=== PATIENT | male | born 1975 | race Caucasian/White ===

== ENCOUNTER 2017-01-30 16:40 | Inpatient (IN) ==
[2017-01-30] MEDS ORDERED: Ondansetron 4 MG/2 ML VIAL IVP PRN (18:54)
[2017-01-30] MEDS ORDERED: Naloxone 0.4 MG/ML INJ IVP PRN (18:54)
[2017-01-30 19:01] LABS: Amphetamine Screen,Urine Negative ng/mL (Cutoff=1000); Barbiturate Screen,Urine Negative ng/mL (Cutoff=200); Benzodiazepines Screen,Urine Positive ng/mL (Cutoff=200); Cannabinoid Screen,Urine Positive ng/mL (Cutoff = 50); Cocaine Screen,Urine Negative ng/mL (Cutoff= 300); Opiate Screen,Urine Negative ng/mL (Cutoff=300); Phencyclidine Screen,Urine Negative ng/mL (Cutoff=25)
--- NOTE | 2017-01-30 19:06 | Internal Med History&Physical ---
<AkhilJacobVivekomarelfegoDevonte H - Last Filed: 01/30/17 21:55> Date of Encounter: 01/30/17 Internal Medicine - H&P: HPI History of present illness: Mr. Bearden is a 41 year old male Internal Medicine - H&P: Meds Atenolol [Tenormin] 25 mg PO DAILY 01/30/17 [History] Gabapentin [Gralise] 900 mg PO DAILY 01/30/17 [History] Levothyroxine [Synthroid] [place] [address]/30/17 [History] Lurasidone HCl [Latuda] 60 mg PO DAILY 01/30/17 [History] Meclizine [Antivert] 25 mg PO DAILY 01/30/17 [History] Sertraline [Zoloft] 150 mg PO DAILY 01/30/17 [History] Simvastatin [Zocor] 40 mg PO HS 01/30/17 [History] Trazodone HCl 450 mg PO DAILY 01/30/17 [History] metFORMIN [Glucophage] 500 mg PO DAILY 01/30/17 [History] Allergies aspirin Allergy (Verified 07/31/16 21:00) See Comments has peptic ulcer tramadol Adverse Reaction (Verified 07/31/16 21:00) Abdominal Pain All Systems PM: A 10-system review of systems was performed and is negative for pertinent findings except as documented above in the HPI. - Constitutional Vitals: Temp Pulse Resp BP Pulse Ox 97.3 F L 108 18 155/107 95 01/30/17 19:12 01/30/17 19:12 01/30/17 19:12 01/30/17 19:12 01/30/17 19:12 Internal Med - H&P Results - Impressions ITS Impressions Brain MRI 01/30/17 20:04 IMPRESSION: No acute infarct. D/ / Edward Gilliam MD / Edward Gilliam MD Interpreting Provider: Edward Gilliam MD - Attending Attestation 1. Acute COPD exacerbation secondary to sepsis due to acute bacterial bronchitis Start Solu-Medrol, troponins, and oxygen therapy as needed Continue Levaquin, discontinue Zosyn 2. Tobacco use, smoking cessation counseling given for 5 minutes. Ordered nicotine patch 3. Persistent dizziness, possible vertigo MRI of the brain was negative for CVA 4. Diabetes type 2 Hold metformin due to lactic acidosis 5. Lactic acidosis likely secondary to poor oxygenation/perfusion from COPD 6. Hypokalemia, replete as needed Order a urine analysis Admit as inpatient, expected to stay more than 2 minutes. Full code. Time spent on this admission 40 minutes. <Khanh Bruce - Last Filed: 01/30/17 22:22> Date of Encounter: 01/30/17 Time of Encounter: 18:30 Assessment and Plan (1) Slurred speech Current visit: No Status: Acute Assess: Mr. Bearden presents with chief complaint of slurred speech, ataxia, dizziness. Patient states his symptoms began approximately 3 days ago and cannot recall the exact onset of symptoms. Reports he is having trouble keeping his balance as well as maintaining normal speech pattern. Patient also reports near syncopal episodes but no blackouts. Mr. Bearden denies visual changes, confusion, sensory deficits, fever, chills, headache, neck pain, chest pain, SOB, abdominal pain, nausea, vomiting, or diaphoresis. Plan: NIHSS ordered Neurological checks Q2HR ordered MR of head/brain w/o contrast ordered Monitor patient and vital signs Falls precautions/[id number] only (2) Ataxia Current visit: No Status: Acute Assess: Mr. Bearden presents with chief complaint of slurred speech, ataxia, dizziness. Patient states his symptoms began approximately 3 days ago and cannot recall the exact onset of symptoms. Reports he is having trouble keeping his balance as well as maintaining normal speech pattern. Patient also reports near syncopal episodes but no blackouts. Mr. Bearden denies visual changes, confusion, sensory deficits, fever, chills, headache, neck pain, chest pain, SOB, abdominal pain, nausea, vomiting, or diaphoresis. Plan: NIHSS ordered Neurological checks Q2HR ordered MR of head/brain w/o contrast ordered Monitor patient and vital signs Falls precautions/[id number] only (3) Leukocytosis Current visit: Yes Status: Acute Assess: Patient presents with a white blood count of 13.6 as well as heart rate ranging between 107 and 117 BPM. Patient is currently exhibiting symptoms of dizziness with ataxia and slurred speech which have been ongoing for approximately 3 days. Patient currently meets SIRS criteria. Plan: Blood cultures ordered Urine cultures ordered Sputum cultures ordered IV levaquin ordered IV Zosyn ordered Lactic acid and time lactic acid ordered Repeat CBC ordered Monitor patient and vital signs Qualifiers: Leukocytosis type: unspecified Qualified Code(s): D72.829 - Elevated white blood cell count, unspecified (4) SIRS (systemic inflammatory response syndrome) Current visit: Yes Status: Acute Assess: Patient presents with a white blood count of 13.6 as well as heart rate ranging between 107 and 117 BPM. Patient is currently exhibiting symptoms of dizziness with ataxia and slurred speech which have been ongoing for approximately 3 days. Patient currently meets SIRS criteria. Plan: Blood cultures ordered Urine cultures ordered Sputum cultures ordered IV levaquin ordered IV Zosyn ordered Lactic acid and time lactic acid ordered Repeat CBC ordered Monitor patient and vital signs (5) Diabetes Current visit: Yes Status: Chronic Assess: Presents with chronic history of diabetes type 2 managed by oral hyperglycemics. 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 Plan: Lipid panel ordered Continue Zocor Qualifiers: Hyperlipidemia type: unspecified Qualified Code(s): E78.5 - Hyperlipidemia , unspecified (7) Hypertension Current visit: Yes Status: Chronic Assess: Patient presents with history of chronic hypertension. Plan: Continue Atenolol Monitor patient and vital signs Qualifiers: Hypertension type: essential hypertension Qualified Code(s): I10 - Essential (primary) hypertension (8) DVT prophylaxis Current visit: Yes Status: Acute Assess: Patient was placed on DVT prophylaxis due to inpatient status protocol. Plan: Heparin 5,000 units SQ Q8 ordered SCDs for lower extremities ordered bilaterally Internal Medicine - H&P: HPI Chief complaint: Slurred speech/dizziness/ataxia Admitted From: Hospital to Hospital Transfer Plans for Post Hospital Care: Home History of present illness: Mr. Bearden is a 41 year old male who presents from [facility] with chief complaint of slurred speech, ataxia, dizziness. Patient states his symptoms began approximately 3 days ago and cannot recall the exact onset of symptoms. Reports he is having trouble keeping his balance as well as maintaining normal speech pattern. Patient also reports near syncopal episodes but no blackouts. Mr. Bearden denies visual changes, confusion, sensory deficits, fever, chills, headache, neck pain, chest pain, SOB, abdominal pain, nausea, vomiting, or diaphoresis. Patient is a history of diabetes, GERD, hyperlipidemia, hypertension, migraine, thyroid disease. Upon admission patient is tachycardic with heart rate of 107-117. Patient also has current WBC of 13.6. Patient is high risk due to meeting SIRS criteria based on WBCs of 13.6 and HR or 107-117, as well as symptoms of ataxia and slurred speech. Patient to be admitted as inpatient with continuous cardiac monitoring, supplemental O2, neurological checks Q2HR, SpO2 monitoring, and SCDs bilaterally for DVT prophylaxis due to possible stroke symptoms. Orders for blood, urine, and sputum cultures have been placed and IV levaquin and Zosyn ordered for broad spectrum infection coverage. Lactic acid and repeat lactic acid levels ordered as well. Patient is to be monitored closely for increased signs of infection or neurological decline. Past Med Surg Social Fam HX - Past Medical History Source: patient Medical history: diabetes, GERD, hyperlipidemia, hypertension, migraine, thyroid disease, other Psychiatric history: anxiety, bipolar, depression, other - Past Surgical History Surgical History: no surgical history - Social History Smoking Status: Current every day smoker Packs per day: 1 1/2 PPD Smokeless Tobacco Status: No Alcohol use: none Drug use: marijuana Current living situation: Home, With Family Activity Level: Independent ambulation Recent Out of Country Travel Within the Last 8 Weeks: No Exposure or Possible Exposure to Illness During Travel: No - Family History Mother Race: Family Member Ethnicity: Non- Living Status: Still Living Hx Family Endocrine Disorder: Yes (Thyroid) Brother Race: Family Member Ethnicity: Non- Living Status: Still Living Hx Family Medical Disorders: No All Systems PM: A 10-system review of systems was performed and is negative for pertinent findings except as documented above in the HPI. - Constitutional Constitutional: no chills, no fever(s), no night sweats - EENT Eyes: no change in vision, no discharge, no pain, no photophobia Ears: no ear discharge, no ear pain, no tinnitus Nose, mouth and throat: no dysphagia, no nasal discharge, no neck pain, no sore throat - Breasts Breasts: as per HPI - Cardiovascular Cardiovascular ROS IM: as per HPI, dyspnea on exertion, other (dizziness), no chest pain, no diaphoresis, no dyspnea, no lightheadedness, no palpitations, no syncope - Respiratory Respiratory: as per HPI, cough, dyspnea on exertion - Gastrointestinal Gastrointestinal: no abdominal pain, no diarrhea, no hematemesis, no hematochezia, no melena, no nausea, no vomiting - Genitourinary Genitourinary ROS male: as per HPI - Musculoskeletal Musculoskeletal ROS IM: no numbness, no tingling - Integumentary Integumentary IM: no rash, no unusual bruising - Neurological Neurological ROS: as per HPI, disequilibrium, dizziness - Psychiatric Psychiatric: as per HPI - Endocrine Endocrine IM: as per HPI - Hematologic/Lymphatic Hematologic/Lymphatic: no easy bruising - Allergic/Immunologic Allergic/Immunologic: as per HPI - Constitutional General appearance: Present: cooperative, A&O X 3, pleasant, no acute distress, obese, answers questions appropriately - Head Head exam: Present: atraumatic, normocephalic - Eye Eye exam: Present: PERRL, conjuntiva pink, sclera anicteric Pupils: Present: PERRL - ENT ENT exam: Present: normal exam, normal external ear exam - Neck Neck exam general surgery: Present: supple, trachea midline. Absent: lymphadenopathy - Respiratory Respiratory exam: Present: CTAB. Absent: accessory muscle use, rales, rhonchi, wheezes - Cardiovascular Cardiovascular exam: Present: RRR, +S1, +S2. Absent: diastolic murmur, gallop, rubs, systolic murmur - GI/Abdominal GI/Abdominal exam: Present: normal bowel sounds, soft, no peritoneal signs. Absent: distended, tenderness - Rectal Rectal exam: Present: deferred - Additional comments: exam deferred. - Extremities Exam Extremities exam: Present: warm, radial pulses palpable and symetrical. Absent : calf tenderness, cyanotic, pedal edema - Back Exam Back exam: Present: normal inspection - Neurological Exam Neurological exam: Present: CN II-XII intact, oriented X3, no focal deficits. Absent: pronater drift, facial droop, speech deficit - Psychiatric Psychiatric exam: Present: normal affect, normal mood - Skin Skin exam: Present: dry, intact Internal Med - H&P Results - Diagnostic Studies Chest x-ray Additional comments: 2-View CXR of the chest dated 01/30/17 shows no pneumonia, edema, or other acute pulmonary process is demonstrated. Cardiac size is within normal limits. No evidence of pneumothorax. No pleural effusion. Overall Impression: No evidence of acute cardiopulmonary disease. CT scan - head Additional comments: CT of the head w/o contrast dated 01/30/17 shows: Brain/Ventricles: No acute intracranial hemorrhage, mass effect or midline shift. No abnormal extra-axial fluid collection. Amador-white differentiation is maintained without evidence of an acute infarct. There is no evidence of hydrocephalus. Orbits: The visualized portion of the orbits demonstrate no acute abnormality. Sinuses: The visualized paranasal sinuses and mastoid air cells demonstrate no acute abnormality. Soft Tissues/Skull: No acute abnormality visualized scholar soft tissues. Overall Impression: No acute intracranial abnormality.
[2017-01-30] MEDS ORDERED: D5% in Water 1,000 ML IVC PRN (20:00)
[2017-01-30] MEDS ORDERED: *HR* Dextrose 50 % in Water (Syg) 50 ML SYRINGE IVP PRN (20:00)
[2017-01-30] MEDS ORDERED: Dextrose Gel 15 GM PO PRN ×2 (20:00)
[2017-01-30] MEDS: Insulin LISPRO 300 UNITS/3 ML VIAL SQ SCH (21:39)
[2017-01-30] MEDS ORDERED: methylPREDNISolone 125 MG/2 ML VIAL IVP ONE (21:56)
[2017-01-30] MEDS ORDERED: MethylPREDNISolone 40 MG/ML VIAL IVP ONE (21:56)
[2017-01-30] MEDS ORDERED: Piperacillin/Tazobactam 3.375 GM in D5% in Water (Mini-Bag+) 100 ML IVPB SCH (22:00)
[2017-01-30] MEDS: Acetaminophen 325 MG TABLET PO PRN (22:13)
[2017-01-30] MEDS: traZODone 50 MG TABLET PO SCH (22:13)
[2017-01-30] MEDS: Nicotine 21 MG PATCH.TD24 TD SCH (22:25)
[2017-01-30] MEDS: *HR* Heparin 5,000 UNIT/ML VIAL SQ SCH (22:27)
[2017-01-30] MEDS: MethylPREDNISolone 40 MG/ML VIAL IVP SCH (23:42)
[2017-01-30] MEDS: Ipratropium/Albuterol Neb 3 ML IH SCH (23:54)
[2017-01-31] MEDS ORDERED: *HR* Heparin 5,000 UNIT/ML VIAL SQ SCH
[2017-01-31] MEDS: Levofloxacin 750 MG/150 ML 750 MG/150 ML BAG IVPB SCH ×2 (01:00→09:10)
[2017-01-31 01:01] LABS: Bilirubin,Urine Negative (Negative); Blood,Urine Moderate (Negative); Clarity,Urine Clear (Clear); Color,Urine Yellow (Yellow); Glucose,Urine (UA) Normal (Normal); Ketones,Urine Negative (Negative); Leukocyte Esterase,Urine Negative (Negative); Nitrite,Urine Negative (Negative); PH,Urine 6.5 pH Units (5.0-8.0); Protein,Urine Negative (Neg-Trace); Urobilinogen,Urine Normal (Normal)
[2017-01-31] MEDS: 0.9 % Sodium Chloride 1,000 ML IVC SCH ×2 (01:01→16:59)
[2017-01-31 01:13] LABS: Basophils # 0.1 K/mcL (0.0-0.2); Basophils % 0.6 %; Eosinophils # 0.4 K/mcL (0.0-0.6); Eosinophils % 3.5 %; Hematocrit 40.9 % (37.5-50.1); Hemoglobin 13.8 g/dL (12.9-16.9); Immature Granulocytes % 0.3 % (0-4); Lymphocytes % 26.9 %; Mean Corpuscular HGB Conc 33.7 g/dL (31.6-35.5); Mean Corpuscular Hemoglobin 31.2 pg (28.0-33.3); Mean Corpuscular Volume 92.5 fL (83.0-100.0); Mean Platelet Volume 9.3 fL (9.4-12.4); Monocytes # 0.6 K/mcL (0.0-1.3); Monocytes % 5.4 %; Neutrophils # 7.1 K/mcL (1.6-8.9); Platelet Count 223 K/mcL (140-400); Red Blood Count 4.42 M/mcL (4.19-5.50); Red Cell Distribution Width 13.2 % (11.5-14.5); Segmented Neutrophils % 63.3 %
[2017-01-31 01:13] LABS: Bacteria,Urine Few per hpf (None-Few); RBC,Urine 0-3 per hpf (0-3)
[2017-01-31 01:20] LABS: Hemoglobin A1C 5.6 %; Prothrombin Time 10.7 Seconds (9.4-12.1)
[2017-01-31 01:22] LABS: Activated Partial Thrombo Time 24.4 Seconds (26.0-36.0)
[2017-01-31 01:29] LABS: Alanine Aminotransferase 20 Units/L (0-55); Albumin 3.1 g/dL (3.5-5.0); Alkaline Phosphatase 110 Units/L (38-126); Aspartate Amino Transferase 15 Units/L (5-34); BUN/Creatinine Ratio 6 (6-26); Bilirubin,Total 0.3 mg/dL (0.2-1.2); Blood Urea Nitrogen 6 mg/dL (8-26); Calcium 8.8 mg/dL (8.6-10.8); Carbon Dioxide 28 mEq/L (19-29); Chloride 106 mEq/L (98-109); Chol/HDL Ratio 10.2 (0-4.9); Cholesterol 275 mg/dL (< 200); Globulin 3.2 g/dL (2.4-3.5); Glucose 114 mg/dL (70-99); HDL Cholesterol 27 mg/dL (40-59); Magnesium 1.7 mg/dL (1.6-2.6); Osmolality,Calculated 294 (280-300); Phosphorous 3.4 mg/dL (2.3-4.7); Potassium 4.1 mEq/L (3.5-4.5); Sodium 143 mEq/L (136-145); Total Protein 6.3 g/dL (6.0-8.3); Triglycerides 701 mg/dL (< 150); eGFR For African Americans > 60 (> 60); eGFR For Non-African Americans > 60 (> 60)
[2017-01-31] MEDS: Ipratropium/Albuterol Neb 3 ML IH SCH ×6 (03:50→23:19)
[2017-01-31] MEDS: *HR* Heparin 5,000 UNIT/ML VIAL SQ SCH ×3 (06:17→22:22)
[2017-01-31] MEDS: Levothyroxine 25 MCG TABLET PO SCH (06:18)
[2017-01-31] MEDS: Acetaminophen 325 MG TABLET PO PRN (06:27)
[2017-01-31] MEDS: Insulin LISPRO 300 UNITS/3 ML VIAL SQ SCH ×5 (09:09→22:30)
[2017-01-31] MEDS: MethylPREDNISolone 40 MG/ML VIAL IVP SCH ×2 (09:10→15:03)
[2017-01-31] MEDS: Pantoprazole 40 MG VIAL IVP SCH (09:10)
[2017-01-31] MEDS: Nicotine 21 MG PATCH.TD24 TD SCH (09:11)
[2017-01-31] MEDS: Aspirin Enteric Coated 81 MG Tablet PO SCH (09:12)
[2017-01-31] MEDS: Lurasidone 20 MG TABLET PO SCH (09:12)
[2017-01-31] MEDS: Gabapentin 300 MG CAPSULE PO SCH (09:13)
--- NOTE | 2017-01-31 13:31 | Internal Med Progress Note ---
Date of Encounter: 01/31/17 Time of Encounter: 13:00 - Assessment and plan (1) COPD exacerbation Current Visit: Yes Status: Acute Assessment and plan: Currently improving Continue DuoNeb breathing treatment, continue Solu-Medrol IV. (2) Hyperlipidemia Current Visit: Yes Status: Chronic Assessment and plan: Continue statin Qualifiers: Hyperlipidemia type: unspecified Qualified Code(s): E78.5 - Hyperlipidemia , unspecified (3) Hypertension Current Visit: Yes Status: Chronic Assessment and plan: Controlled. Continue current medications Qualifiers: Hypertension type: essential hypertension Qualified Code(s): I10 - Essential (primary) hypertension (4) DVT prophylaxis Current Visit: Yes Status: Acute Assessment and plan: Continue heparin subcutaneous. (5) Tobacco abuse counseling Current Visit: Yes Status: Acute Assessment and plan: Patient states he smokes about a pack and half of cigarettes daily. His been counseled about smoking cessation. He is on nicotine patch. (6) Ataxia Current Visit: No Status: Resolved Assessment and plan: Initial ataxia and slurred speech seen on presentation at the time of admission has now resolved. MRI of the brain is negative, echo shows LVEF of 70% with normal wall motion. Carotid Doppler pending. Continue aspirin and statin No evidence of acute CVA at this time. (7) Anxiety Current Visit: Yes Status: Chronic Assessment and plan: Chronic anxiety disorder. Patient is on Zoloft and trazodone. He is also on Latuda. We will need to continue all these medications while in the hospital. He will need to follow up with his psychiatrist after discharge. - Time Spent With Patient less than 15 minutes - Subjective Interval history: Patient is awake and alert. Not in any acute distress. Tolerating all right. No fever. Denies chest pain or shortness of breath. Denies dizziness or lightheadedness. States he feels better. Was admitted last night for COPD exacerbation and slurred speech and ataxia. MRI of the brain is negative. Echocardiogram shows LVEF of 70%. No other acute events or complaints at present. No other acute events or complaints at present - Constitutional Vitals: Temp Pulse Resp BP Pulse Ox 98.4 F 109 18 129/72 95 01/31/17 11:00 01/31/17 11:00 01/31/17 11:17 01/31/17 11:00 01/31/17 11:17 General appearance: Present: cooperative, A&O X 3, pleasant, no acute distress, obese, answers questions appropriately - Head Head exam: Present: atraumatic - ENT ENT exam: Present: mucous membranes moist - Neck Neck exam general surgery: Present: supple - Respiratory Respiratory exam: Present: CTAB. Absent: rhonchi, wheezes - Cardiovascular Cardiovascular exam: Present: RRR, +S1, +S2 - GI/Abdominal GI/Abdominal exam: Present: soft. Absent: guarding, tenderness Additional comments: Obese - Extremities Exam Extremities exam: Present: radial pulses palpable and symetrical. Absent: cyanotic, pedal edema - Neurological Exam Neurological exam: Present: alert, oriented X3, no focal deficits Additional comments: Neuro exam seems normal. Internal Medicine: Result - Labs CBC & Chem 7: 01/31/17 00:54 01/31/17 00:54 Labs: Short CBC 01/31/17 Range/Units 00:54 WBC 11.2 H (4.3-11.1) K/mcL Hgb 13.8 (12.9-16.9) g/dL Hct 40.9 (37.5-50.1) % Plt Count 223 (140-400) K/mcL Neutrophils # 7.1 (1.6-8.9) K/mcL BMP 01/31/17 00:54 Sodium 143 Potassium 4.1 Chloride 106 Carbon Dioxide 28 BUN 6 L Creatinine 0.98 Glucose 114 H Calcium 8.8 Liver Function 01/31/17 Range/Units 00:54 Total Bilirubin 0.3 (0.2-1.2) mg/dL AST 15 (5-34) Units/L ALT 20 (0-55) Units/L Alkaline Phosphatase 110 (38-126) Units/L Albumin 3.1 L (3.5-5.0) g/dL Urine 01/31/17 Range/Units 00:32 Urine Color Yellow (Yellow) Urine Clarity Clear (Clear) Urine pH 6.5 (5.0-8.0) pH Units Ur Specific [place] 1.010 (1.010-1.025) Urine Protein Negative (Neg-Trace) mg/dL Urine Glucose (UA) Normal (Normal) mg/dL - ABG Interpretation ABG results: PT/INR, D-dimer PT 10.7 Seconds (9.4-12.1) 01/31/17 00:54 - Impressions Impressions Brain MRI 01/30/17 20:04 IMPRESSION: No acute infarct. D/ / Edward Gilliam MD / Edward Gilliam MD Interpreting Provider: Edward Gilliam MD Consult Discharge Plan - Plan Referrals: Betsey Cuello CNP [Primary Care Provider] - 02/06/17 12:30 pm (Please follow up as schedule..)
--- NOTE | 2017-01-31 16:37 | Carotid Imaging Report ---
Carotid Duplex Patient Name:Ray Bearden Order Number:[id number] Procedure Date:01/31/2017 Date:1975Age:41 yrs Gender:Male Location:[facility] Room #: 2A37 Ceramics Artist:Elias Frances RDCS Referring MD:Khanh Bruce CNP delinquency prevention social worker:Betsey Cuello, MACK Reading MD:Benito Concepcion MD Primary Indications:CVA Risk Factors Yes/No Hypertension Yes Diabetes Yes Hypercholesterolemia Yes Smoking Current Yes Impressions: The bilateral carotid arteries have minimal plaque throughout. Recommendations: After imaging the patient returned to their room. Findings Carotid Duplex: Right: The right proximal common carotid artery has a PSV of 107 cm/s and a EDV of 16 cm/s. The right mid common carotid artery has a PSV of 90 cm/s and a EDV of 22 cm/s. The right distal common carotid artery has a PSV of 92 cm/s and a EDV of 22 cm/s. There is nonstenotic plaque in the right bifurcation with a PSV of 70 cm/s and a EDV of 19 cm/s. There is smooth heterogeneous plaque. The right proximal internal carotid artery has a PSV of 78 cm/s and a EDV of 20 cm/s. The right mid internal carotid artery has a PSV of 62 cm/s and a EDV of 25 cm/s. The right distal internal carotid artery has a PSV of 44 cm/s and a EDV of 16 cm/s. The right eca has a PSV of 180 cm/s and a EDV of 32 cm/s. The right vertebral artery has a PSV of 45 cm/s and a EDV of 14 cm/s. Left: The left proximal common carotid artery has a PSV of 147 cm/s and a EDV of 27 cm/s. The left mid common carotid artery has a PSV of 121 cm/s and a EDV of 24 cm/s. The left distal common carotid artery has a PSV of 106 cm/s and a EDV of 29 cm/s. There is nonstenotic plaque in the left bifurcation with a PSV of 79 cm/s and a EDV of 20 cm/s. There is smooth heterogeneous plaque. The left proximal internal carotid artery has a PSV of 70 cm/s and a EDV of 25 cm/s. The left mid internal carotid artery has a PSV of 80 cm/s and a EDV of 27 cm/s. The left distal internal carotid artery has a PSV of 81 cm/s and a EDV of 31 cm/s. The left eca has a PSV of 192 cm/s and a EDV of 31 cm/s. The left vertebral artery has a PSV of 48 cm/s and a EDV of 12 cm/s. Prior Study: No prior study available for comparison. Carotid Results Right PSV EDV Assessment Proximal CCA 107 16 Normal Mid CCA 90 22 Normal Distal CCA 92 22 Normal Bifurcation 70 19 Non Stenotic Plaque Proximal ICA 78 20 Normal Mid ICA 62 25 Normal Distal ICA 44 16 Normal ECA 180 32 Normal Vertebral Artery 45 14 Normal Left PSV EDV Assessment Proximal CCA 147 27 Normal Mid CCA 121 24 Normal Distal CCA 106 29 Normal Bifurcation 79 20 Non Stenotic Plaque Proximal ICA 70 25 Normal Mid ICA 80 27 Normal Distal ICA 81 31 Normal ECA 192 31 Normal Vertebral Artery 48 12 Normal Ratio's Right ICA/CCA Ratio: 0.87 ICA/CCA Values: 78/90 Left ICA/CCA Ratio: 0.67 ICA/CCA Values: 81/121 Updated by Benito Concepcion MD on 01/31/2017 4:32:20 PM electronically signed on 01/31/2017 4:32:32 PM with status of Final
[2017-01-31] MEDS ORDERED: Nicotine 21 MG PATCH.TD24 TD ONE (18:08)
[2017-01-31] MEDS: traZODone 50 MG TABLET PO SCH (22:22)
[2017-02-01] MEDS: MethylPREDNISolone 40 MG/ML VIAL IVP SCH ×2 (00:12→08:22)
[2017-02-01] MEDS: Ipratropium/Albuterol Neb 3 ML IH SCH ×2 (04:14→07:55)
[2017-02-01] MEDS: *HR* Heparin 5,000 UNIT/ML VIAL SQ SCH (04:40)
[2017-02-01] MEDS: Levothyroxine 25 MCG TABLET PO SCH (04:40)
[2017-02-01] MEDS: 0.9 % Sodium Chloride 1,000 ML IVC SCH (04:42)
[2017-02-01 08:16] VITALS: BP 137/88
[2017-02-01] MEDS: Gabapentin 300 MG CAPSULE PO SCH (08:20)
[2017-02-01] MEDS: Insulin LISPRO 300 UNITS/3 ML VIAL SQ SCH (08:20)
[2017-02-01] MEDS: Lurasidone 20 MG TABLET PO SCH (08:22)
[2017-02-01] MEDS: Pantoprazole 40 MG VIAL IVP SCH (08:22)
[2017-02-01] MEDS: Nicotine 21 MG PATCH.TD24 TD SCH (08:22)
[2017-02-01] MEDS: Aspirin Enteric Coated 81 MG Tablet PO SCH (08:22)
[2017-02-01] MEDS: Levofloxacin 750 MG/150 ML 750 MG/150 ML BAG IVPB SCH (08:23)
--- NOTE | 2017-02-01 08:43 | Discharge Summary ---
Date of Encounter: 02/01/17 Time of Encounter: 08:20 - Discharge Diagnosis (1) COPD exacerbation Priority: Primary Status: Acute Comments: Improved Continue DuoNebs, steroids (2) Hyperlipidemia Priority: Secondary Status: Chronic Comments: continue statin Qualifiers: Hyperlipidemia type: unspecified Qualified Code(s): E78.5 - Hyperlipidemia , unspecified (3) Hypertension Priority: Secondary Status: Chronic Comments: Controlled. Continue current medications Qualifiers: Hypertension type: essential hypertension Qualified Code(s): I10 - Essential (primary) hypertension (4) Tobacco abuse counseling Priority: Secondary Status: Acute Comments: Patient states he smokes about a pack and half of cigarettes daily. he has been counseled about smoking cessation. Continue nicotine patch. (5) Ataxia Priority: Primary Status: Resolved Comments: Initial ataxia and slurred speech seen on presentation at the time of admission has now resolved. MRI of the brain is negative, echo shows LVEF of 70% with normal wall motion. Carotid Doppler shows minimal plaque b/l. Continue aspirin and statin No evidence of acute CVA at this time. (6) Anxiety Priority: Primary Status: Chronic Comments: Chronic anxiety disorder. Patient is on Zoloft and trazodone. He is also on Latuda. He will need to follow up with his psychiatrist after discharge. - Discharge Medications Prescriptions: Ipratropium/Albuterol Neb [Duoneb] 3 ml IH [id number] #30 inhsol Aspirin Enteric Coated [Aspirin EC] 81 mg PO DAILY #30 tablet. Nebulizer [Aeroeclipse] 1 each MC DAILY #1 each Nicotine Patch [Nicoderm] 21 mg TD DAILY #30 patch.td24 PredniSONE [Deltasone] 20 mg PO DAILY #20 tablet Home Medications: Atenolol [Tenormin] 25 mg PO DAILY 01/30/17 [History] Gabapentin [Gralise] 900 mg PO DAILY 01/30/17 [History] Levothyroxine [Synthroid] 25 mcg PO 0630 01/30/17 [History] Lurasidone HCl [Latuda] 60 mg PO DAILY 01/30/17 [History] Meclizine [Antivert] 25 mg PO DAILY 01/30/17 [History] Sertraline [Zoloft] 150 mg PO DAILY 01/30/17 [History] Simvastatin [Zocor] 40 mg PO HS 01/30/17 [History] Trazodone HCl 450 mg PO DAILY 01/30/17 [History] metFORMIN [Glucophage] 500 mg PO DAILY 01/30/17 [History] Cyclobenzaprine [Flexeril] 10 mg PO TID PRN 01/31/17 [History] Loratadine [Claritin] 10 mg PO DAILY 01/31/17 [History] Naproxen [Naprosyn] 500 mg PO BID PRN 01/31/17 [History] Omeprazole [PriLOSEC] 20 mg PO BID 01/31/17 [History] Triamterene/HCTZ 37.5/25mg [Dyazide] 1 tab PO DAILY 01/31/17 [History] diazePAM [Valium] 10 mg PO BID PRN 01/31/17 [History] Aspirin Enteric Coated [Aspirin EC] 81 mg PO DAILY #30 tablet. 02/01/17 [Rx] Ipratropium/Albuterol Neb [Duoneb] 3 ml IH [id number] #30 inhsol 02/01/17 [Rx] Nebulizer [Aeroeclipse] 1 each MC DAILY #1 each 02/01/17 [Rx] Nicotine Patch [Nicoderm] 21 mg TD DAILY #30 patch.td24 02/01/17 [Rx] PredniSONE [Deltasone] 20 mg PO DAILY #20 tablet 02/01/17 [Rx] Allergies/Adverse Reactions: Allergies aspirin Allergy (Verified 01/31/17 08:14) See Comments has peptic ulcer CAN TAKE COATED ASPIRIN-PER PATIENT tramadol Adverse Reaction (Verified 01/31/17 08:14) Abdominal Pain Procedures/tests Complete & Pending: Procedures Performed prior 72 hours Category Date Time Status MR head/brain wo con [MR] Stat MRI 01/30/17 20:04 Completed ECG 12 lead ECG [ECG] Stat Y 01/30/17 18:54 Completed EV carotid duplex imaging BI Routine Y 01/31/17 20:32 Completed EV echocardiogram Routine Y 01/31/17 20:32 Completed Date of admission: 01/30/17 20:48 Primary care physician: Betsey Cuello Consults: 01/31/17 07:10 Consult to Physical Therapy [CONS] Routine Comment: Evaluate, develop and implement POC Reason for Consult: PT eval, possible cva Consult to Speech Therapy [CONS] Routine Comment: Evaluate, develop and implement POC Reason for Consult: [facility], slurred speech Call Completed: No Anticipated date of discharge: 02/01/17 - Patient Status Disposition: Home, Self-Care Condition: Good Functional capacity at discharge: independent ambulation Overall status at discharge: patient is back to baseline - Discharge Instructions Instructions: Prednisone (By mouth), Chronic Obstructive Pulmonary Disease (DC) , Hypertension (DC) Follow Up With: Betsey Cuello CNP [Primary Care Provider] - 02/06/17 12:30 pm (Please follow up as schedule..) - Diet and Activity Activity: resume usual activities as tolerated Diet: low fat, low cholesterol Hospital course: Mr. Bearden is a 41 year old male with a past medical history of diabetes, GERD, hyperlipidemia, hypertension, thyroid disease, anxiety, bipolar disorder, depression. He presented from [facility] with chief complaint of slurred speech, ataxia and dizziness. Patient stated that his symptoms initially began about 3 days prior to admission. He been having some trouble maintaining his balance and also trouble with his speech. He denied having any visual changes, confusion, sensory deficits, fever, chills, neck pain, chest pain, shortness of breath, abdominal pain or any other problems. Initially he had the elevated white count. Rest of his labs are fairly within normal limits. He had an MRI of his brain done and did not show any acute infarct and no other acute findings. Carotid Doppler was also done and showed minimal plaque bilaterally. Echocardiogram was also done and shows LVEF of 70% with normal wall motion. Patient was started on aspirin and continued on statin during his stay in the hospital. Patient's symptoms of slurred speech and ataxia now completely resolved. He denies having any chest pain or shortness of breath. On the day of discharge patient is awake and alert. Sitting up comfortably in bed. He is ambulating well. Tolerating oral diet well. Patient has been explained about his condition and plan of care. He understood and agreed. No unanswered questions. Patient was also diagnosed with acute COPD exacerbation. He was on DuoNeb breathing treatment and he was also on Solu -Medrol. And IV Levaquin. He was continued on all his home medications including atenolol and also his latuda and Zoloft. Patient tolerated all his meds well. Patient is being discharged in stable condition. - Time Spent with Patient Total time spent providing and/or coordinating discharge services: Less than 30 minutes - Constitutional Vitals: Temp Pulse Resp BP Pulse Ox 97.3 F L 109 16 137/88 95 02/01/17 08:14 02/01/17 08:14 02/01/17 08:14 02/01/17 08:14 02/01/17 08:14 General appearance: Present: cooperative, A&O X 3, morbidly obese, pleasant, no acute distress, answers questions appropriately - Head Head exam: Present: atraumatic - ENT ENT exam: Present: mucous membranes moist - Neck Neck exam general surgery: Present: supple - Respiratory Respiratory exam: Present: CTAB. Absent: rhonchi, wheezes - Cardiovascular Cardiovascular exam: Present: RRR, +S1, +S2 - GI/Abdominal GI/Abdominal exam: Present: distended (OBESE), soft. Absent: guarding, tenderness - Extremities Exam Extremities exam: Present: radial pulses palpable and symetrical. Absent: cyanotic, pedal edema - Neurological Exam Neurological exam: Present: alert, oriented X3, no focal deficits
--- NOTE | 2017-02-01 09:04 | Electrocardiograph Report ---
[place] [id number] Test Date: 2017-01-30 Pat Name: Ray Bearden Department: 112 Room: 2A37 Gender: M Membership Manager: DAV : 1975 Requested By: Khanh Bruce Order Number: [id number] Reading MD: Peter Gillespie DO Measurements Intervals [place] Rate: 106 P: 66 [place]: 175 QRS: 35 QRSD: 113 T: 31 QT: 351 QTc: 413 Interpretive Statements SINUS TACHYCARDIA Electronically Signed On 02-01-2017 9:02:31 EDT by Peter Gillespie DO
[2017-02-01] MEDS ORDERED: Nicotine 21 MG PATCH.TD24 TD ONE (18:08)
== END 2017-02-01 11:11 | disposition home or self-care (01) | DRG 140 ==
LOC: 2ANU
PROVIDERS: ADMIT Registered Nurse; ATTEND Internal Medicine